=== PATIENT | male | born 1945 | race Caucasian/White ===

== ENCOUNTER 2022-07-17 18:35 | Inpatient (IN) | payer MEDICARE, BC ==
[2022-07-17] MEDS ORDERED: Dextrose 5% in Water 1,000 ML IV PRN (19:16)
[2022-07-17] MEDS ORDERED: Dextrose 50% Abboject 50 ML SYRINGE SLOW IVP PRN (19:16)
[2022-07-17] MEDS ORDERED: HumaLOG 300 UNITS/3 ML VIAL SC PRN (19:16)
[2022-07-17] MEDS ORDERED: Ondansetron PF 4 MG/2 ML Vial IVP PRN (19:16)
[2022-07-17] MEDS ORDERED: Calcium Carbonate 500 MG ChewTAB PO PRN (19:16)
[2022-07-17] MEDS ORDERED: Acetaminophen 325 MG TAB PO PRN (19:16)
[2022-07-17] MEDS ORDERED: Guaifenesin DM 100-10/5 ML UDCUP PO PRN (19:16)
[2022-07-17 19:41] VITALS: BMI 29.9
[2022-07-17] MEDS: Latanoprost 0.005% Ophth Soln 2.5 ml Bottle EA EYE SCH (20:47)
[2022-07-17] MEDS: Lactated Ringer's 1,000 ML IV SCH (20:47)
[2022-07-17] MEDS: Apixaban 5 MG TAB PO SCH (20:47)
[2022-07-17] MEDS: Escitalopram Oxalate 10 mg Tablet PO SCH (20:47)
[2022-07-18 01:07] LABS: Legionella Urinary Ag Negative (Negative); Strep pneumo Urine Ag NEGATIVE (NEGATIVE)
[2022-07-18] MEDS: Lactated Ringer's 1,000 ML IV SCH ×2 (05:11→17:55)
[2022-07-18 05:18] LABS: #Eosinphils 0.2 10x3/uL (0.0-0.5); #Monocytes 0.6 10x3/uL (0.0-1.1); #Neutrophils 3.2 10x3/uL (1.5-8.4); %Basophils 0.6 % (0.0-2.0); %Eosinophils 2.6 % (0.0-6.0); %Lymphocytes 22.4 % (18.0-47.0); %Monocytes 11.1 % (0.0-10.0); %Neutrophils 62.8 % (40.0-75.0); Hemoglobin 12.6 g/dL (13.5-17.5); Mean Corpuscular HGB CONC 33.4 g/dL (32.0-36.0); Mean Corpuscular Hemoglobin 32.2 pg (27.0-33.0); Mean Corpuscular Volume 96.2 fl (81.2-95.1); Mean Platelet Volume 10.5 fl (7.4-10.4); Platelet Count 133 10x3/uL (150-450); RBC Distribution Width 13.2 % (11.5-14.5); Red Blood Cell (RBC) Count 3.98 10x6/uL (4.32-5.72); White Blood Cell (WBC) Count 5.1 10x3/uL (3.5-10.5)
[2022-07-18 05:39] LABS: Anion Gap 14 mmol/L (10-20); BUN (Urea Nitrogen) 26 mg/dL (8.4-25.7); Calc. Creatinine Clearance 73 mL/min (70-130); Calcium 8.4 mg/dL (7.8-10.44); Carbon Dioxide 19 mmol/L (23-31); Chloride 112 mmol/L (98-107); Estimated GFR 57; Glucose 90 mg/dL (83-110); Sodium 141 mmol/L (136-145)
[2022-07-18] MEDS: Apixaban 5 MG TAB PO SCH ×2 (09:30→20:20)
[2022-07-18] MEDS: Atorvastatin Calcium 20 MG TAB PO SCH (09:30)
[2022-07-18] MEDS: Oxybutynin ER 5 MG TAB PO SCH (09:30)
[2022-07-18] MEDS: Glimepiride 2 MG TAB PO SCH (09:31)
[2022-07-18] MEDS: Cyanocobalamin (Vitamin B-12) 1,000 MCG TAB PO SCH (09:31)
[2022-07-18] MEDS: Ascorbic Acid 500 mg Chewable Tablet PO SCH (09:31)
[2022-07-18] MEDS: Ezetimibe 10 MG TAB PO SCH (09:31)
[2022-07-18] MEDS: Cholecalciferol 1,000 UNITS (25 MCG) TAB PO SCH (09:32)
[2022-07-18 13:06] LABS: Hemoglobin A1c 7.2 % (4.0-6.0)
[2022-07-18] MEDS: Escitalopram Oxalate 10 mg Tablet PO SCH (20:20)
[2022-07-18] MEDS: Latanoprost 0.005% Ophth Soln 2.5 ml Bottle EA EYE SCH (20:20)
[2022-07-19] MEDS: Lactated Ringer's 1,000 ML IV SCH ×2 (03:24→11:55)
[2022-07-19] MEDS: Ascorbic Acid 500 mg Chewable Tablet PO SCH (08:53)
[2022-07-19] MEDS: Oxybutynin ER 5 MG TAB PO SCH (08:53)
[2022-07-19] MEDS: Ezetimibe 10 MG TAB PO SCH (08:53)
[2022-07-19] MEDS: Cholecalciferol 1,000 UNITS (25 MCG) TAB PO SCH (08:54)
[2022-07-19] MEDS: Apixaban 5 MG TAB PO SCH ×2 (08:54→21:33)
[2022-07-19] MEDS: Cyanocobalamin (Vitamin B-12) 1,000 MCG TAB PO SCH (08:54)
[2022-07-19] MEDS: Atorvastatin Calcium 20 MG TAB PO SCH (08:54)
[2022-07-19] MEDS: Glimepiride 2 MG TAB PO SCH (09:02)
[2022-07-19 09:21] LABS: Anion Gap 11 mmol/L (10-20); BUN (Urea Nitrogen) 22 mg/dL (8.4-25.7); Calc. Creatinine Clearance 71 mL/min (70-130); Calcium 8.6 mg/dL (7.8-10.44); Carbon Dioxide 23 mmol/L (23-31); Chloride 110 mmol/L (98-107); Estimated GFR 55; Glucose 113 mg/dL (83-110); Magnesium 1.7 mg/dL (1.6-2.6); Potassium 4.1 mmol/L (3.5-5.1); Sodium 140 mmol/L (136-145)
[2022-07-19] MEDS ORDERED: Magnesium 2 GM/50 ML(in water) 2 GM in Premix Bag 1 BAG IVPB SCH (12:00)
[2022-07-19] MEDS: Escitalopram Oxalate 10 mg Tablet PO SCH (21:33)
[2022-07-19] MEDS: Latanoprost 0.005% Ophth Soln 2.5 ml Bottle EA EYE SCH (23:19)
[2022-07-20 04:37] LABS: Anion Gap 16 mmol/L (10-20); BUN (Urea Nitrogen) 22 mg/dL (8.4-25.7); Calc. Creatinine Clearance 73 mL/min (70-130); Calcium 8.4 mg/dL (7.8-10.44); Carbon Dioxide 19 mmol/L (23-31); Chloride 111 mmol/L (98-107); Estimated GFR 57; Glucose 93 mg/dL (83-110); Potassium 3.9 mmol/L (3.5-5.1); Sodium 142 mmol/L (136-145)
[2022-07-20] MEDS: Lactated Ringer's 1,000 ML IV SCH ×2 (08:03→08:04)
[2022-07-20 09:34] VITALS: TEMP 97.9
[2022-07-20] MEDS: Atorvastatin Calcium 20 MG TAB PO SCH (09:34)
[2022-07-20] MEDS: Ascorbic Acid 500 mg Chewable Tablet PO SCH (09:36)
[2022-07-20] MEDS: Cyanocobalamin (Vitamin B-12) 1,000 MCG TAB PO SCH (09:36)
[2022-07-20] MEDS: Oxybutynin ER 5 MG TAB PO SCH (09:36)
[2022-07-20] MEDS: Ezetimibe 10 MG TAB PO SCH (09:36)
[2022-07-20] MEDS: Apixaban 5 MG TAB PO SCH (09:36)
[2022-07-20] MEDS: Cholecalciferol 1,000 UNITS (25 MCG) TAB PO SCH (09:36)
[2022-07-20 09:37] VITALS: BP 153/70
[2022-07-20] MEDS: Glimepiride 2 MG TAB PO SCH (09:38)
[2022-07-20] MEDS ORDERED: hydrALAZINE 25 MG TAB PO SCH ×2 (10:00→21:00)
[2022-07-20] MEDS ORDERED: Losartan Potassium 50 MG TAB PO SCH (21:00)
== END 2022-07-20 11:58 | disposition home or self-care (01) | DRG 699 ==
LOC: CSHTELE 18:35
PROVIDERS: ADMIT Family Medicine; ATTEND Internal Medicine
DX: T83.510A Infection and inflammatory reaction due to cystostomy catheter, initial encounter (principal); I69.354 Hemiplegia and hemiparesis following cerebral infarction affecting left non-dominant side; N39.0 Urinary tract infection, site not specified; N17.9 Acute kidney failure, unspecified; Z20.822 Contact with and (suspected) exposure to COVID-19; E78.5 Hyperlipidemia, unspecified; I25.10 Atherosclerotic heart disease of native coronary artery without angina pectoris; N18.30 Chronic kidney disease, stage 3 unspecified; E11.22 Type 2 diabetes mellitus with diabetic chronic kidney disease; Z66 Do not resuscitate; E86.0 Dehydration; I95.9 Hypotension, unspecified; I12.9 Hypertensive chronic kidney disease with stage 1 through stage 4 chronic kidney disease, or unspecified chronic kidney disease; Y83.8 Other surgical procedures as the cause of abnormal reaction of the patient, or of later complication, without mention of misadventure at the time of the procedure; R33.9 Retention of urine, unspecified; N31.9 Neuromuscular dysfunction of bladder, unspecified; Z88.2 Allergy status to sulfonamides; Z79.84 Long term (current) use of oral hypoglycemic drugs; Z79.899 Other long term (current) drug therapy; Z95.1 Presence of aortocoronary bypass graft; Z98.890 Other specified postprocedural states; Z90.49 Acquired absence of other specified parts of digestive tract; Z86.718 Personal history of other venous thrombosis and embolism
CPT/HCPCS: 36415; 36416; 80048; 83036; 83735; 84443; 85025; 87081; 87086; 87430; 87449; 87804; 87807; 87899; 93005; 93010; 93306; J1815; J1956; J3475; J7120